=== PATIENT | female | born 1940 | race Caucasian/White ===

== ENCOUNTER 2020-12-23 22:48 | Observation (INO) | payer OTHER, MEDICAID, SELFPAY ==
[~2020-12-23] VITALS: Ht 160 cm; Wt 77.1 kg
[2020-12-23 22:48] VITALS: BP_SYST 154
--- NOTE | 2020-12-23 22:48 | NUR ---
Patient to ER bed 1 to gown for evaluation. Side rails up. Report given to self. ER Dr. Garcia at bedside examining patient.
[2020-12-23] MEDS ORDERED: NS 500 ML IV ONE (23:15)
[2020-12-23] MEDS ORDERED: NITROGLYCERIN 1 INCH (GM) OINT. TP ONE (23:15)
[2020-12-23] MEDS ORDERED: DILTIAZEM HCL 25 MG/5 ML VIAL IVP ONE (23:15)
[2020-12-23] MEDS ORDERED: ASPIRIN 81 MG TAB.CHEW PO ONE (23:15)
--- NOTE | 2020-12-23 23:15 | NUR ---
Medicated w/ ntg 1 inch paste per MD orders. IVF 0.9% NS infusing with no s/s of infiltration at this time. Will cont to monitor and observe for any adverse reaction. Patient not medicated w/ ASA 2nd to being on Eliquis and was given 325mg of ASA by paramedics. Patient self converted Rapid afib from rate 150-200 to 85-100. Cardizem held. Positioned patient for comfort. bed to low position sr up, continue to monitor.
[2020-12-23] MEDS ORDERED: METO50TA7 PO (23:38)
[2020-12-23] MEDS ORDERED: APIX5TAB4 PO (23:38)
[2020-12-23] MEDS ORDERED: LEVO88TA2 PO (23:38)
--- NOTE | 2020-12-23 23:40 | NUR ---
ASSSITED PT TO BEDPAN. URINE SPECIMEN COLLECTED SENT TO LAB.
[2020-12-24 01:07] LABS: HEMOGLOBIN 11.9 g/dL (12.0-16.0)
[2020-12-24 01:12] LABS: BASOPHILS % (AUTO) 0.2 % (0.0-2.0); HEMATOCRIT 35.7 % (36-48); LYMPHOCYTES # (AUTO) 1.9 K/uL (1.0-5.5); LYMPHOCYTES % (AUTO) 27.9 % (20.5-51.5); MEAN CORPUSCULAR HEMOGLOBIN 31 pg (27-31); MEAN CORPUSCULAR HGB CONC 33 % (32-36); MEAN CORPUSCULAR VOLUME 93 fL (79.0-98.0); MONOCYTES # (AUTO) 0.6 K/uL (0.0-1.0); MONOCYTES % (AUTO) 9.2 % (1.7-9.3); NEUTROPHILS # (AUTO) 4.3 K/uL (1.8-7.7); NEUTROPHILS % (AUTO) 62.7 % (40.0-70.0); PLATELET COUNT (AUTO) 284 K/uL (130-430); RED BLOOD CELL COUNT(AUTO) 3.86 MIL/uL (4.2-6.2); RED CELL DISTRIBUTION WIDTH 14.1 % (9.0-15.0); WHITE BLOOD COUNT (AUTO) 6.8 K/uL (4.8-10.8)
[2020-12-24 01:14] LABS: ANION GAP 7 (5-15); CALCIUM 8.2 mg/dL (8.4-11.0); CHLORIDE 107 mmol/L (98-107); CREATININE 0.44 mg/dL (0.55-1.30); GLUCOSE 159 mg/dL (70-99); SODIUM SERUM 143 mmol/L (136-145); UREA NITROGEN, BLOOD 12 mg/dL (8-21)
[2020-12-24 01:19] LABS: ALANINE AMINOTRANSFERASE 27 U/L (12-78); ALBUMIN 3.1 g/dL (3.4-4.8); ASPARTATE AMINOTRANSFERASE 22 U/L (10-37); TOTAL BILIRUBIN 0.2 mg/dL (0.0-1.0)
--- NOTE | 2020-12-24 01:35 | NUR ---
Patient resting quietly. No acute distress noted. Vital signs within normal range. nsr on printmaker w/ noted p waves. Patient denies any cp or sob. continue to monitor.
[2020-12-24] MEDS ORDERED: ACETAMINOPHEN 325 MG TABLET ONE (03:14)
--- NOTE | 2020-12-24 03:18 | NUR ---
Medicated w/ tylenol 650mg po per MD orders. Will cont to monitor and observe for any adverse reaction. Patient resting quietly. No acute distress noted. Vital signs within normal range.
[2020-12-24] MEDS ORDERED: ACETAMINOPHEN 325 MG TABLET PO ONE (03:30)
[2020-12-24] MEDS ORDERED: IPRATROPIUM BROM 0.5 MG/2.5 ML VIAL.NEB (ATROVENT) INH PRN (04:00)
[2020-12-24] MEDS ORDERED: HYDROcodone/ACETAMIN 5-325 MG TAB (NORCO/ VICODIN) PO PRN (04:00)
[2020-12-24] MEDS ORDERED: MORPHINE 4 MG INJ. 4 MG/ML VIAL IVP PRN (04:00)
[2020-12-24] MEDS ORDERED: ACETAMINOPHEN 325 MG TABLET PO PRN ×3 (04:00→07:30)
[2020-12-24 04:29] VITALS: BP_SYST 125
--- NOTE | 2020-12-24 04:30 | NUR ---
Patient will be admitted to care of [facility]. Admitted to tele unit. Will go to room 113A. Belongings list completed. Complete and up to date summary report printed. SBAR report to be given at bedside with opportunity for questions.
--- NOTE | 2020-12-24 04:42 | NUR ---
arrived on unit at 0425 - Sinus Rhythm by monitor. Pt condition stable. Telemetry leads attached and pt demonstrated Sinus Rhythm. Pt A+O*NPTE. NKDA. Dx: New Onset AFib w RVR.
[2020-12-24 04:45] VITALS: BP_SYST 124
--- NOTE | 2020-12-24 04:55 | NUR ---
Consultation Paged Reason for Consultation: AFiB Was consult called: Y Person who was notified: Izzy Consulting Physician: Dr. Branch Ordering Physician: Dr. Robbins
[2020-12-24] MEDS ORDERED: LEVOTHYROXINE SODIUM 0.088 MG TABLET PO SCH (07:00)
[2020-12-24 08:00] VITALS: BP_SYST 128
[2020-12-24 08:42] LABS: BASOPHILS % (AUTO) 0.2 % (0.0-2.0); HEMATOCRIT 36.3 % (36-48); HEMOGLOBIN 12.2 g/dL (12.0-16.0); LYMPHOCYTES # (AUTO) 1.9 K/uL (1.0-5.5); LYMPHOCYTES % (AUTO) 35.2 % (20.5-51.5); MEAN CORPUSCULAR HEMOGLOBIN 30 pg (27-31); MEAN CORPUSCULAR HGB CONC 33 % (32-36); MEAN CORPUSCULAR VOLUME 90 fL (79.0-98.0); MONOCYTES # (AUTO) 0.5 K/uL (0.0-1.0); MONOCYTES % (AUTO) 8.7 % (1.7-9.3); NEUTROPHILS % (AUTO) 55.9 % (40.0-70.0); PLATELET COUNT (AUTO) 263 K/uL (130-430); RED BLOOD CELL COUNT(AUTO) 4.02 MIL/uL (4.2-6.2); RED CELL DISTRIBUTION WIDTH 14.2 % (9.0-15.0); WHITE BLOOD COUNT (AUTO) 5.3 K/uL (4.8-10.8)
[2020-12-24] MEDS ORDERED: APIXABAN 2.5 MG TABLET PO SCH (09:00)
[2020-12-24] MEDS ORDERED: METOPROLOL SUCCINATE 50 MG TAB.SR.24H (TOPROL XL) PO SCH (09:00)
[2020-12-24 09:18] LABS: ALANINE AMINOTRANSFERASE 28 U/L (12-78); ANION GAP 4 (5-15); ASPARTATE AMINOTRANSFERASE 17 U/L (10-37); CALCIUM 8.4 mg/dL (8.4-11.0); CHLORIDE 107 mmol/L (98-107); CREATININE 0.51 mg/dL (0.55-1.30); FREE T4 (FREE THYROXINE) 1.1 ng/dl (0.8-1.5); GLUCOSE 172 mg/dL (70-99); POTASSIUM 4.4 mmol/L (3.5-5.1); SODIUM SERUM 142 mmol/L (136-145); THYROID STIMULATING HORMONE 0.33 uIu/mL (0.36-3.74); TOTAL BILIRUBIN 0.3 mg/dL (0.0-1.0); UREA NITROGEN, BLOOD 11 mg/dL (8-21)
--- NOTE | 2020-12-24 10:45 | NUR ---
0715AM: PATIENT IS RESTING IN BED QUIETLY. NO ADDITIONAL DISTRESS NOTED. BED IN LOW AND LOCK POSITION. BED ALARM ON. CALL LIGHT AND WALKER WITHIN REACH. STABLE CONDITION AT THIS TIME. WILL CONT TO MONITOR. 0800AM: EXPLAINED PLAN OF CARE AND PATIENT VERBALIZED UNDERSTANDING (VIA SAMMYING MACHINE OPERATOR). WILL CONT TO MONITOR. 0900AM: PROVIDE AM CARE; ORAL AND FACIAL CARE. PATIENT IS ABLE TO DO HYGIENE INDEPENDENTLY. 1000AM: PATIENT RESTING IN BED WITH ECHO AT THE BEDSIDE. NO ADDITIONAL DISTRESS NOTED. 1045AM: PATIENT AMB TO THE BATHROOM USING A WALKER INDEPENDENTLY W/ STEADY GAIT. NO ADDITIONAL DISTRESS NOTED.
[2020-12-24 11:32] VITALS: BP_SYST 118
[2020-12-24 13:33] VITALS: BP_SYST 118
[2020-12-24 15:23] VITALS: BP_SYST 124
--- NOTE | 2020-12-24 16:00 | NUR ---
1200PM: PATIENT IS SITTING AT THE SIDE OF THE BED EATING HER LUNCH. NO ADDITIONAL DISTRESS NOTED. 1300: SPOKE TO DAUGHTER ON PATIENT CELL PHONE THAT PATIENT WILL BE GOING HOME TODAY WHEN TROP X3 RESULT IS NORMAL. MADE HER AWARE THAT THE NURSE WILL CALL HER BACK WHEN PATIENT IS READY TO BE PICKED UP. DAUGHTER VERBALIZED UNDERSTANDING. 1400: U/S BLE AT THE BEDSIDE. 1500: PATIENT IS RESTING IN BED QUIETLY TALKING IN THE PHONE. NO ADDITIONAL DISTRESS NOTED. 1600: PATIENT ASLEEP AT THIS TIME. WILL CONT TO MONITOR.
--- NOTE | 2020-12-24 18:00 | NUR ---
1745: DC INSTRUCTIONS GIVEN AND EXPLAINED TO PATIENT AND DUSTIN (ON THE PHONE) AND BOTH VERBALIZED UNDERSTANDING. ETA 1800 TO SHAFT HEADMAN THE PATIENT. IV REMOVED FROM THE LEFT HAND. IV CATH INTACT AND PATENT WHEN REMOVED. COVER SITE WITH GAUZE AND SECURE WITH TAPE. NO ADDITIONAL DISTRESS NOTED. STABLE CONDITION AT THIS TIME. 1800: WHEELED OUT PATIENT BY PRIMARY NURSE AND LEFT THE FACILITY IN A STABLE CONDITION. SHOWED DUSTIN DC PAPERS AND SHE ACKNOWLEDGE DC INSTRUCTIONS AND ER PRECAUTION. ALL PERSONAL BELONGINGS GIVEN TO PATIENT AND DENIES MISSING ITEMS.
== END 2020-12-24 18:07 | disposition home or self-care (01) ==
LOC: SED 22:48 → INTOOBSV 12-24 03:05 → UNDOADMOB 12-24 03:05 → STU 12-24 03:05 → UNDODISOB 12-24 18:07
PROVIDERS: ADMIT Internal Medicine; ATTEND Internal Medicine
DX: R07.89 Other chest pain (principal); Z20.822 Contact with and (suspected) exposure to COVID-19; I48.0 Paroxysmal atrial fibrillation; I25.10 Atherosclerotic heart disease of native coronary artery without angina pectoris; I24.9 Acute ischemic heart disease, unspecified; I12.9 Hypertensive chronic kidney disease with stage 1 through stage 4 chronic kidney disease, or unspecified chronic kidney disease; E11.22 Type 2 diabetes mellitus with diabetic chronic kidney disease; N18.9 Chronic kidney disease, unspecified; E03.9 Hypothyroidism, unspecified; D68.9 Coagulation defect, unspecified; E05.90 Thyrotoxicosis, unspecified without thyrotoxic crisis or storm; M19.90 Unspecified osteoarthritis, unspecified site; Z86.718 Personal history of other venous thrombosis and embolism; Z90.710 Acquired absence of both cervix and uterus; Z79.01 Long term (current) use of anticoagulants; Z79.890 Hormone replacement therapy; Z79.899 Other long term (current) drug therapy
CPT/HCPCS: 36415; 71045; 80053; 83880; 84439; 84443; 84484; 85025; 87426; 93005 ×2; 93306; 93970; 96374; 99285; G0378; J3490